=== PATIENT | female | born 1960 | race Caucasian/White ===

== ENCOUNTER 2022-04-16 07:43 | Emergency (ER) | payer MEDICAID ==
[~2022-04-16] VITALS: Ht 170.2 cm; Wt 53.5 kg
[2022-04-16 07:52] VITALS: BP 118/67
--- NOTE | 2022-04-16 08:03 | NUR ---
Dr. Juarez evaluating patient at bedside.
[2022-04-16] MEDS ORDERED: NACL 0.9% 1,000 ML IV ONE (08:05)
[2022-04-16] MEDS ORDERED: METOCLOPRAMIDE 10 MG/2 ML INJ VIAL IVP ONE (08:05)
[2022-04-16] MEDS ORDERED: diphenhydrAMINE 50 MG/ML VIAL IVP ONE (08:05)
[2022-04-16] MEDS ORDERED: KETOROLAC 15 MG/ML VIAL IVP ONE (08:05)
--- NOTE | 2022-04-16 08:31 | NUR ---
Blood samples obtained, walked to lab.
--- NOTE | 2022-04-16 08:44 | NUR ---
61 y/o female c/o migraine headache z 4 days. Patient has taken ibuprofen, tylenol and excedrin migraine with no relief. Per patient was diagnosed with URI x 3 days ago. Medical History: Migraines ALLERGY: ADHESIVE TAPE, VARENICLINE
[2022-04-16 09:22] LABS: BASOPHILS % (AUTO) 0.3 % (0.0-2.0); EOSINOPHILS % (AUTO) 0.4 % (0.0-4.0); HEMATOCRIT 40.6 % (36-48); HEMOGLOBIN 13.6 g/dL (12.0-16.0); LYMPHOCYTES % (AUTO) 15.6 % (20.5-51.1); MEAN CORPUSCULAR HEMOGLOBIN 33 pg (27-31); MEAN CORPUSCULAR HGB CONC 34 g/dL (33-37); MEAN CORPUSCULAR VOLUME 96.9 fL (80-94); MONOCYTES # (AUTO) 0.5 K/uL (0.8-1.0); MONOCYTES % (AUTO) 8.5 % (1.7-9.3); NEUTROPHILS # (AUTO) 4.6 K/uL (1.8-7.7); NEUTROPHILS % (AUTO) 75.2 % (42.2-75.2); PLATELET COUNT (AUTO) 406 K/uL (140-450); RED BLOOD CELL COUNT(AUTO) 4.19 MIL/uL (4.20-5.40); WHITE BLOOD COUNT (AUTO) 6.1 K/uL (4.8-10.8)
[2022-04-16 09:42] LABS: ALBUMIN 3.4 g/dL (3.4-5.0); ANION GAP 14.5 (8-16); CREATININE 0.9 mg/dL (0.6-1.3); POTASSIUM 3.5 mmol/L (3.5-5.1); TOTAL BILIRUBIN 0.5 mg/dL (0.0-1.0)
[2022-04-16] MEDS ORDERED: IMI50 PO (10:18)
--- NOTE | 2022-04-16 10:35 | NUR ---
Patient discharged with v/s stable. Written and verbal after care instructions given. Patient alert, oriented and verbalized understanding of instructions. Ambulatory with steady gait. All questions addressed prior to discharge. ID band removed. Patient advised to follow up with PMD. Rx of Imitrex given. Opportunity to ask questions provided and answered.
[2022-04-16 10:36] VITALS: BP 121/75
--- NOTE | 2022-04-16 10:36 | NUR ---
Chart checked and completed. The patient's care was reviewed and supervised by Liz Kirkland RN.
== END 2022-04-16 10:35 | disposition home or self-care (01) ==
LOC: MED 07:43
DX: G43.909 Migraine, unspecified, not intractable, without status migrainosus (principal); Z88.8 Allergy status to other drugs, medicaments and biological substances
CPT/HCPCS: 36415; 80053; 83605; 85025; 96361; 96374; 96375; 99284; J1200; J1885; J2765; J7030